=== PATIENT | female | born 1995 | race Caucasian/White ===

== ENCOUNTER 2021-05-20 00:25 | Emergency (ER) | payer MEDICAID ==
[~2021-05-20] VITALS: Ht 167.6 cm; Wt 122.7 kg
[2021-05-20 00:29] VITALS: TEMP 98.2
[2021-05-20 00:58] LABS: COLLECTION METHOD CLEAN CATCH
[2021-05-20 01:04] LABS: MUCOUS Present (NOT PRESENT); PH 8 (5-8); SQUAMOUS EPITHELIAL 0-2 /hpf (0-10); URINE APPEARANCE Clear (CLEAR/HAZY); URINE BACTERIA None Seen /hpf (NONE SEEN); URINE BILIRUBIN Negative (NEGATIVE); URINE BLOOD Negative (NEGATIVE); URINE COLOR Yellow (YELLOW); URINE GLUCOSE Negative (NEGATIVE); URINE KETONE Negative (NEGATIVE); URINE LEUKOCYTE ESTERASE Negative (NEGATIVE); URINE NITRATE Negative (NEGATIVE); URINE PROTEIN(semi-quant) Negative (NEGATIVE); URINE RBC 0-2 /hpf (0-2); URINE UROBILINOGEN Negative (NEGATIVE)
[2021-05-20] MEDS ORDERED: NORCO 325 MG-51 TAB PO (01:54)
[2021-05-20 02:05] VITALS: BP 132/78; PULSE 76
== END 2021-05-20 02:05 | disposition home or self-care (01) ==
LOC: COL.ER 00:25
PROVIDERS: Emergency Medicine
DX: R05.9 Cough, unspecified (principal)